=== PATIENT | female | born 1980 | race Caucasian/White ===

== ENCOUNTER → 2020-11-23 | Outpatient (CLI) | payer BC ==
[~2020-11-23] MED LIST: ALPR0.5T PO; ASCO500C PO; BUSP15TA PO; CITA20TA9 PO; FERR-36 PO; LEVO112T2 PO; MULT-279 PO; OMEG300C PO; OXYC1TAB15 PO
== END ==
LOC: LAB 08:46
PROVIDERS: ATTEND Surgery
DX: Z01.812 Encounter for preprocedural laboratory examination (principal); Z20.822 Contact with and (suspected) exposure to COVID-19
CPT/HCPCS: U0003; U0005

== ENCOUNTER 2020-11-24 06:01 | Day surgery (SDC) | payer BC ==
[~2020-11-24] VITALS: Ht 157.5 cm; Wt 136.0 kg
[~2020-11-24 06:01] MED LIST changes: +ACETAMINOPHEN 500 MG TABLET PO PRN; -BUSP15TA PO; +HYDROmorphone 2 MG/ML VIAL IVP PRN; +IV RINGERS,LACTATED 1000ML 1,000 ML IV SCH; +MORPHINE SULFATE 2 MG/ML INJ. IVP PRN; -OXYC1TAB15 PO; +PROCHLORPERAZINE 10 MG/2 ML VIAL. IVP PRN; +fentaNYL PF VIAL 100 MCG/2 ML VIAL IVP PRN
[2020-11-24] MEDS ORDERED: PROPOFOL 10 MG/ML (20ML) VIAL. IV ONE (06:16)
[2020-11-24] MEDS ORDERED: ONDANSETRON PF 4 MG/2 ML VIAL. ONE (06:16)
[2020-11-24] MEDS ORDERED: DEXAMETHASONE SOD PHOS 4 MG/ML VIAL ONE (06:16)
[2020-11-24] MEDS ORDERED: LIDOCAINE 2% PF 5 ML VIAL. ONE (06:16)
[2020-11-24] MEDS ORDERED: ROCURONIUM 50 MG/5 ML VIAL. ONE (06:17)
[2020-11-24] MEDS ORDERED: BUSP15TA PO (06:27)
--- NOTE | 2020-11-24 06:38 | NUR ---
spseth green given now
[2020-11-24] MEDS ORDERED: IOHEXOL 300 MG/ML 50 ML VIAL. ONE (06:57)
[2020-11-24] MEDS ORDERED: SURGICEL HEMOSTAT 4X8 EACH. ONE (06:57)
[2020-11-24] MEDS ORDERED: BUPIVACAINE-EPI 0.25%-1:200000 MPF 30 ML VIAL. ONE (06:57)
[2020-11-24] MEDS ORDERED: MIDAZOLAM HCL/PF 2 MG/2 ML VIAL. ONE (07:03)
[2020-11-24] MEDS ORDERED: KETAMINE HCL IN NACL, ISO-OSM 50 MG/5 ML SYRINGE ONE (07:03)
[2020-11-24] MEDS ORDERED: SUCCINYLCHOLINE 200 MG/10 ML VIAL. ONE (07:10)
[2020-11-24] MEDS ORDERED: GLYCOPYRROLATE 1 MG/5 ML VIAL. ONE (07:10)
[2020-11-24] MEDS ORDERED: NEOSTIGMINE METHYLSULFATE 5 MG/5 ML SYRINGE. ONE (07:10)
--- NOTE | 2020-11-24 07:45 | PDOC1 ---
History and Physical Date of Admission Date of Admission DATE: 11/24/20 TIME: 07:42 Identification/Chief Complaint Chief Complaint Right upper quadrant abdominal pain Source Source: Patient History of Present Illness History of Present Illness 39-year-old female with epigastric to right upper quadrant abdominal pain recently seen in emergency department with ultrasound done showing gallstones. Past Medical History Cardiovascular: No pertinent hx Pulmonary: No pertinent hx CENTRAL NERVOUS SYSTEM: Migraine GI: GERD Heme/Onc: No pertinent hx Hepatobiliary: No pertinent hx Psych: Depression Rheumatologic: No pertinent hx Infectious disease: No pertinent hx ENT: No pertinent hx Renal/: No pertinent hx Endocrine: No pertinent hx Dermatology: No pertinent hx Past Surgical History Past Surgical History: Appendectomy, , Tonsillectomy, Hysterectomy Family History Family History: No Significant Social History Smoke: No ALCOHOL: none Drugs: None Current Medications Current Medications Current Medications Fentanyl Citrate (Fentanyl 2ml Vial) 25 mcg PRN Q5MIN PRN IVP MILD PAIN 1-3; Start 11/24/20 at 06:00; Stop 11/25/20 at 05:59 Fentanyl Citrate (Fentanyl 2ml Vial) 50 mcg PRN Q5MIN PRN IVP MODERATE PAIN 4- 6; Start 11/24/20 at 06:00; Stop 11/25/20 at 05:59 Morphine Sulfate (Morphine Sulfate) 1 mg PRN Q10MIN PRN IVP SEVERE PAIN 7-10; Start 11/24/20 at 06:00; Stop 11/25/20 at 05:59 Ringer's Solution 1,000 ml @ 30 mls/hr Q24H IV ; Start 11/24/20 at 06:00; Stop 11/24/20 at 17:59 Hydromorphone HCl (Dilaudid) 0.5 mg PRN Q10MIN PRN IVP SEVERE PAIN 7-10, 2nd CHOICE; Start 11/24/20 at 06:00; Stop 11/25/20 at 05:59 Prochlorperazine Edisylate (Compazine) 5 mg PACU PRN PRN IVP NAUSEA, MRX1; Start 11/24/20 at 06:00; Stop 11/25/20 at 05:59 Levofloxacin/ Dextrose 100 ml @ 100 mls/hr 1X PREOP PRN IV PRIOR TO PROCEDURE; Start 11/24/20 at 06:00; Stop 11/24/20 at 18:00 Acetaminophen (Tylenol) 1,000 mg 1X PREOP PRN PO PRIOR TO PROCEDURE Last administered on 11/24/20at 06:37; Start 11/23/20 at 17:00 Propofol (Diprivan) 200 mg STK-MED ONCE IV ; Start 11/24/20 at 06:16; Stop 11/24/20 at 06:17; Status DC Lidocaine HCl (Lidocaine Pf 2% Vial) 5 ml STK-MED ONCE .ROUTE ; Start 11/24/20 at 06:16; Stop 11/24/20 at 06:17; Status DC Dexamethasone Sodium Phosphate (Decadron) 4 mg STK-MED ONCE .ROUTE ; Start 11/24/20 at 06:16; Stop 11/24/20 at 06:17; Status DC Ondansetron HCl (Zofran) 4 mg STK-MED ONCE .ROUTE ; Start 11/24/20 at 06:16; Stop 11/24/20 at 06:17; Status DC Rocuronium [place] (Zemuron) 50 mg STK-MED ONCE .ROUTE ; Start 11/24/20 at 06:17; Stop 11/24/20 at 06:17; Status DC Iohexol (Omnipaque 300 Mg/ml) 50 ml STK-MED ONCE .ROUTE ; Start 11/24/20 at 06 :57; Stop 11/24/20 at 06:57; Status DC Cellulose (Surgicel Hemostat 4x8) 1 each STK-MED ONCE .ROUTE ; Start 11/24/20 at 06:57; Stop 11/24/20 at 06:57; Status DC Bupivacaine HCl/ Epinephrine Bitart (Sensorcaine-Epi 0.25%-1:330204 Mpf) 30 ml STK-MED ONCE .ROUTE ; Start 11/24/20 at 06:57; Stop 11/24/20 at 06:58; Status DC Midazolam HCl (Versed) 2 mg STK-MED ONCE .ROUTE ; Start 11/24/20 at 07:03; Stop 11/24/20 at 07:03; Status DC Ketamine HCl (Ketamine) 50 mg STK-MED ONCE .ROUTE ; Start 11/24/20 at 07:03; Stop 11/24/20 at 07:03; Status DC Glycopyrrolate (Robinul) 1 mg STK-MED ONCE .ROUTE ; Start 11/24/20 at 07:10; Stop 11/24/20 at 07:10; Status DC Neostigmine [place] (Neostigmine Methylsulfate) 5 mg STK-MED ONCE .ROUTE ; Start 11/24/20 at 07:10; Stop 11/24/20 at 07:10; Status DC Succinylcholine Chloride (Anectine) 200 mg STK-MED ONCE .ROUTE ; Start 11/24/20 at 07:10; Stop 11/24/20 at 07:11; Status DC Active Scripts Active Reported Buspirone Hcl 15 Mg Tablet 1 Tab PO TID Xanax (Alprazolam) 0.5 Mg Tablet 0.5 Mg PO HS Fish Oil ([place]-3 Fatty Acids) 300 Mg Capsule 300 Mg PO DAILY Vitamin C (Ascorbic Acid) 500 Mg Capsule.er 500 Mg PO DAILY One Daily Maximum (Multivit With Calcium,Iron,Min) 1 Each Tablet 1 Each PO DAILY Iron (Ferrous Sulfate) 325 Mg Tablet 325 Mg PO QID Celexa (Citalopram Hydrobromide) 20 Mg Tablet 20 Mg PO HS Synthroid (Levothyroxine Sodium) 112 Mcg Tablet 112 Mcg PO Allergies Allergies: Coded Allergies: tree nut (Verified Allergy, Severe, Anaphylaxis, 11/23/20) venom-wasp (Verified Allergy, Intermediate, Unknown, 11/23/20) bee venom protein (honey bee) (Verified Allergy, Unknown, Unknown, 11/23/20) hornet venom (Verified Allergy, Unknown, 11/23/20) amoxicillin (Verified Adverse Reaction, Severe, 11/23/20) YEAST INFECTIONS ALL OVER BODY apple (Verified Adverse Reaction, Intermediate, 11/23/20) SORES IN MOUTH watermelon (Verified Adverse Reaction, Intermediate, 11/23/20) EYES WATER, ITCHY MOUTH ROS Gastrointestinal: Yes Abdominal Pain Physical Exam General: Alert, Oriented X3, Cooperative, No acute distress HEENT: Atraumatic, EOMI Lungs: Clear to auscultation, Normal air movement Heart: RRR, no murmurs Abdomen: Normal bowel sounds, Soft, Other (Tender to palpation right upper quadrant) Rectal Exam: not examined Extremities: No edema Skin: No significant lesion Neuro: Normal speech Psych/Mental Status: Mental status NL Vitals Vitals Vital Signs Date Time Temp Pulse Resp B/P (MAP) Pulse Ox O2 Delivery O2 Flow Rate FiO2 11/24/20 06:32 97.4 68 20 134/71 98 Room Air 97.4 Images Images Ultrasound of the abdomen showing gallstones VTE Prophylaxis Ordered VTE Prophylaxis Devices: Yes VTE Pharmacological Prophylaxi: Contraindicated Assessment/Plan Assessment/Plan Chronic cholecystitis cholelithiasis plan laparoscopic cholecystectomy Justifications for Admission Other Justification BRANDON CLARK MD Nov 24, 2020 07:45
--- NOTE | 2020-11-24 08:31 | PDOC4 ---
Operative Note Operative Note Date: November 242020 at 830 Preoperative diagnosis: Chronic cholecystitis cholelithiasis Postoperative diagnosis: Same Procedure: Laparoscopic cholecystectomy with fluorescein cholangiography Surgeon: Curtis Specimen: Gallbladder Dictation: Patient is 39-year-old female with right upper quadrant abdominal pain ultrasound showing gallstones. Procedure laparoscopic cholecystectomy was explained to the patient detail risk benefits were also discussed including bleeding infection injury to intra-abdominal contents possible necessitating further open operations alternatives to this procedure also discussed with the patient who seemed to understand and gave both verbal and written consent to have the procedure performed. Patient was taken to the operating room placed in supine position general anesthesia was initiated once patient was sleeping intubated her abdomen was prepped and draped in usual sterile fashion using ChloraPrep. Area just below the umbilicus was injected with quarter percent Marcaine with epinephrine incision was made 11 blade scalpel and varies needle was placed within the abdomen creating pneumoperitoneum once this was complete the millimeter port was placed and a 5 mm camera is placed within the abdomen which was inspected no other ab maladies were noted. 5 mm port was placed in the epigastrium a 5 mm port was placed in the right midabdomen a 5 mm port was placed in the right lateral abdomen. The dome of the gallbladder is grasped retracted cephalad the infundibulum of the gallbladder is grasped retracted laterally exposing the triangle adherent tissues the triangle were taken down blunt dissection exposing the cystic duct and cystic artery the fluorescein was shown showing good anatomy of the cystic duct to the common bile duct there is flow seen within the duct evidence of no obstruction. The cystic duct was doubly clipped and transected as well as the cystic artery the gallbladder was taken off the liver with hook electrocautery placed in Endo Catch bag removed and the umbilicus right upper quadrant was irrigated suctioned dry hemostasis deemed be appropriate the pneumoperitoneum was reduced all ports were removed the fascial defect at the umbilicus was closed with a [id number] 0 Vicryl suture and the skin was reapproximated all port sites for subcuticular Monocryl Mastisol Steri-Strips and island dressings were applied. Patient was awakened and extubated in the operating room taken to recovery in stable condition all sponge instrument needle counts listed as correct estimated blood loss 5 mL BRANDON CLARK MD Nov 24, 2020 08:31
[2020-11-24] MEDS ORDERED: OXYC1TAB15 PO (08:33)
--- NOTE | 2020-11-24 08:35 | DISCH ---
DISCHARGE INSTRUCTIONS Condition on Discharge Condition on Discharge: Stable Activity After Discharge Activity Instructions for Disc: Avoid exertion Other activity instructions: No lifting more than 20 pounds for 2 weeks Diet after Discharge Diet after Discharge: Low Fat Wound Incision Care Other wound/incision instructi: May shower in 24 hours Contacting the after DC Call your doctor for: If your condition worsens Follow-Up Follow up with: Dr. Clark in 2 weeks BRANDON CLARK MD Nov 24, 2020 08:35
[2020-11-24] MEDS ORDERED: fentaNYL PF VIAL 100 MCG/2 ML VIAL ONE (08:50)
[2020-11-24] MEDS ORDERED: PROCHLORPERAZINE 10 MG/2 ML VIAL. ONE (08:50)
[2020-11-24] MEDS ORDERED: oxyCODONE/APAP 5/325 1 TAB TABLET ONE (09:13)
[2020-11-24 09:14] VITALS: BP 147/70
[2020-11-24] MEDS ORDERED: oxyCODONE/APAP 5/325 1 TAB TABLET PO ONE (09:15)
--- NOTE | 2020-11-27 17:11 | PATHOLOGY ---
[facility] Accession Number: [id number] . 01 Material submitted: . gallbladder - GALLBLADDER AND CONTENTS . 01 Clinical history: . CHRONIC CHOLECYSTITIS LAP CHICHO . 02 Diagnosis: Gallbladder, laparoscopic cholecystectomy: - Cholesterolosis, focal. - Chronic cholecystitis. (LILY:lorelei; 11/27/2020) R 11/27/2020 1350 Local . 02 Comment: There are no calculi identified within the gallbladder lumen or specimen container. There is no evidence of malignancy. (LILY:lorelei; 11/27/2020) . 02 Electronically signed: . Marin Patricia MD, Pathologist NPI- [id number] . 01 Gross description: . Fixative: Formalin Labeled: Gallbladder and contents Specimen received: Intact Dimensions: 7.9 x 2.7 x 2.5 cm Serosa: [place] and glistening Lymph node: None Mucosa: Green and velvety with minimal barclay stippling Average wall thickness: 0.2 cm Calculi: None Abnormalities: None . A1: Gallbladder, represented ([facility]; 11/24/2020) DKA/DKA 11/24/2020 1828 Local . 02 Pathologist provided ICD-10: K80.10 . 02 CPT . 992084 Performed at: 01 [facility] [address], [place], [place] [id number] MD Avila Leon MD Phone: [phone] Performed at: 02 [facility] [address] [place], [place] [id number] MD Marin Patricia MD Phone: [phone]
== END 2020-11-24 09:47 | disposition home or self-care (01) ==
LOC: SURG 06:01
PROVIDERS: ATTEND Surgery
DX: K80.10 Calculus of gallbladder with chronic cholecystitis without obstruction (principal); E66.9 Obesity, unspecified; E03.9 Hypothyroidism, unspecified; K21.9 Gastro-esophageal reflux disease without esophagitis; F41.9 Anxiety disorder, unspecified; F32.9 Major depressive disorder, single episode, unspecified; Z98.51 Tubal ligation status; Z98.890 Other specified postprocedural states; Z79.899 Other long term (current) drug therapy; Z88.1 Allergy status to other antibiotic agents; Z88.8 Allergy status to other drugs, medicaments and biological substances
CPT/HCPCS: 47562; A4364; A4930; A6219; J0330; J0780; J1100; J1956; J2250; J2405; J2704; J2710; J3010; J3490; A4657; Q9967